=== PATIENT | male | born 1965 | race Caucasian/White ===

== ENCOUNTER 2021-04-02 15:00 | Inpatient (IN) | payer MEDICAID ==
[~2021-04-02] VITALS: Ht 180.3 cm; Wt 173.8 kg
[2021-04-02 21:11] VITALS: BP 165/85
[2021-04-02] MEDS ORDERED: LORazepam 2 mg/ml vial IV PRN (21:35)
[2021-04-02] MEDS ORDERED: HYDROcodone/acetaminophen 5mg/325mg tablet PO PRN (21:35)
[2021-04-02] MEDS ORDERED: morphine 2 MG/ML inj. syringe IV PRN ×2 (21:35)
[2021-04-02] MEDS ORDERED: potassium Cl 20 mEq SR tablet PO PRN ×2 (21:35)
[2021-04-02] MEDS ORDERED: magnesium hydroxide 30ml (MOM) UD suspension PO PRN (21:35)
[2021-04-02] MEDS ORDERED: magnesium 2GM in 50ml NS 50 ML IV PRN (21:35)
[2021-04-02] MEDS ORDERED: potassium Cl 40MEQ/1/2NS 520ml 520 ML IV PRN ×2 (21:35)
[2021-04-02] MEDS ORDERED: acetaminophen 325mg tablet PO PRN ×2 (21:35)
[2021-04-02] MEDS ORDERED: magnesium 4gm in 100ml NS 100 ML IV PRN (21:35)
[2021-04-02] MEDS ORDERED: mag hydrox/Alum hydrox/simeth 30ml oral suspension PO PRN (21:35)
[2021-04-02] MEDS ORDERED: magnesium Cl slow-release 64mg tablet PO PRN (21:35)
[2021-04-02] MEDS ORDERED: heparin 10,000 units/1 ML INJ IV ONE (21:35)
[2021-04-02] MEDS ORDERED: ondansetron/PF 4mg/2ml inj IV PRN (21:35)
[2021-04-02] MEDS ORDERED: dextrose ORAL solution 15 GM/59 ML bottle PO PRN ×2 (22:20)
[2021-04-02] MEDS ORDERED: glucagon, human recombinant 1mg kit SUBCUT PRN (22:20)
[2021-04-02] MEDS ORDERED: MESSAGE TO PHARMACY PO ONE (22:20)
[2021-04-02] MEDS ORDERED: dextrose 50%-water 50ml dispensing syringe IV PRN ×2 (22:20)
--- NOTE | 2021-04-02 22:22 | NUR ---
hydro plant technician was unable to obtain blood sample after 2 puncture. tried as well but no vain can be seen or palpated, IV fluid will be started as order and will try later to obtain blood sample
[2021-04-02] MEDS: normal saline 1000ml 1,000 ML IV SCH (22:46)
[2021-04-02] MEDS: heparin 25,000 UNIT/250ml bag 250 ML IV SCH (23:27)
[2021-04-03] VITALS (10 sets, daily range): BP systolic 136–182; BP diastolic 52–148
[2021-04-03] MEDS: CefTRIAXone 2gm/D5W 50ml BAG 50 ML IV SCH ×2 (00:52→08:22)
[2021-04-03 01:11] LABS: BASOPHILS # (AUTO) 0.1 X10'3 (0-0.2); BASOPHILS % (AUTO) 0.9 % (0-1); EOSINOPHILS # (AUTO) 0.1 X10'3 (0-0.9); EOSINOPHILS % (AUTO) 1.1 % (0-6); HEMATOCRIT 31.9 % (42.0-52.0); HEMOGLOBIN 10.8 g/dl (14.0-17.9); LYMPHOCYTES # (AUTO) 2.6 X10'3 (1.1-4.8); LYMPHOCYTES % (AUTO) 29.8 % (21-51); MEAN CORPUSCULAR HGB CONC 33.8 g/dL (33.0-36.5); MEAN CORPUSCULAR VOLUME 79.8 FL (78-98); MEAN PLATELET VOLUME 8.1 FL (7.4-10.4); MONOCYTES # (AUTO) 0.6 X10'3 (0-0.9); MONOCYTES % (AUTO) 6.9 % (2-12); NEUTROPHILS # (AUTO) 5.3 X10'3 (1.8-7.7); NEUTROPHILS % (AUTO) 61.3 % (42-75); PLATELET COUNT 250 X10'3 (140-440); RED CELL DISTRIBUTION WIDTH 14.8 % (11.5-14.5); WHITE BLOOD COUNT 8.7 X10'3 (4.5-11.0)
[2021-04-03 01:27] LABS: ALANINE AMINOTRANSFERASE 25 U/L (12-78); ALBUMIN 2.4 G/DL (3.4-5.0); ALBUMIN/GLOBULIN RATIO 0.6 (1.1-1.5); ALKALINE PHOSPHATASE 62 IU/L (46-116); ANION GAP 7 (8-16); ASPARTATE AMINO TRANSFERASE 19 U/L (10-37); BILIRUBIN,TOTAL 0.8 MG/DL (0.1-1.0); BLOOD UREA NITROGEN 11 MG/DL (7-18); BUN/CREATININE RATIO 13.4 (5.4-32.0); CHLORIDE 103 MMOL/L (99-107); CHOL/HDL RATIO 2.7 (0.00-4.99); CHOLESTEROL 125 MG/DL (0-200); CREATININE 0.82 MG/DL (0.60-1.10); GLUCOSE 208 MG/DL (70-104); HDL CHOLESTEROL 47 MG/DL (35-60); LDL CHOLESTEROL 58 MG/DL (50-100); POTASSIUM 4.1 MMOL/L (3.5-5.1); SODIUM 141 MMOL/L (135-145); TOTAL CARBON DIOXIDE 30.7 MMOL/L (24-32); TOTAL PROTEIN 6.4 G/DL (6.4-8.2); TRIGLYCERIDES 93 MG/DL (20-135); eGFR > 90 ML/MIN
[2021-04-03 01:31] LABS: HEMOGLOBIN A1C 9.9 % (4.5-6.2)
[2021-04-03 01:33] LABS: MAGNESIUM 0.9 MG/DL (1.5-2.4)
--- NOTE | 2021-04-03 05:11 | NUR ---
patient remains NPO SINCE AFTER MIDNIGHT
--- NOTE | 2021-04-03 05:43 | NUR ---
Unable to obtain PTT level for heparin protocol, another nurse will try to obtain sample
--- NOTE | 2021-04-03 06:30 | NUR ---
Patient in room PCU 3013. I have received report from Maranda HANCOCK and had the opportunity to ask questions and assume patient care.
--- NOTE | 2021-04-03 07:50 | NUR ---
report given to ronnie/SANTI
[2021-04-03] MEDS: K and/or MAG REPLACEMENT MC SCH ×2 (08:00→20:00)
[2021-04-03] MEDS: LORazepam 1 MG tablet PO PRN (08:22)
[2021-04-03] MEDS: azithromycin/NS 500mg/250ml 250 ML IV SCH (08:22)
[2021-04-03] MEDS: nicotine 14mg patch - 24hr TD SCH (08:22)
[2021-04-03] MEDS ORDERED: aspirin 81mg tab.chew PO ONE (09:35)
[2021-04-03] MEDS ORDERED: ACET325T64 PO (09:44)
[2021-04-03] MEDS ORDERED: TEMA15CA5 PO (09:44)
[2021-04-03] MEDS ORDERED: DIPH25CA52 PO (09:44)
[2021-04-03] MEDS ORDERED: nitroGLYCERIN 0.4mg SUBLingual tab SL PRN (09:45)
[2021-04-03] MEDS ORDERED: aminophylline 250mg/10ml inj. IV PRN (09:45)
[2021-04-03] MEDS ORDERED: metoprolol tartrate 1mg/ml inj IV PRN (09:45)
[2021-04-03] MEDS ORDERED: regadenoson 0.4mg/5ml syringe IV PRN (09:45)
[2021-04-03] MEDS ORDERED: ENOX40SY7 SUBCUT (09:47)
[2021-04-03] MEDS ORDERED: HYDR-3965 PO (09:47)
[2021-04-03] MEDS ORDERED: BACL-11 PO (09:49)
[2021-04-03] MEDS ORDERED: ATOR40TA71 PO (09:49)
[2021-04-03] MEDS ORDERED: losartan 25mg tablet PO SCH (09:50)
[2021-04-03] MEDS: heparin 10,000 units/1 ML INJ IV PRN (10:16)
[2021-04-03] MEDS: carVEDilol 3.125mg tablet PO SCH ×2 (10:36→20:32)
[2021-04-03] MEDS: atorvastatin 10mg tablet PO SCH (10:36)
--- NOTE | 2021-04-03 10:37 | NUR ---
Met with patient in regards to substance use and to see if patient wanted resources for inpatient rehab. Patient would like to go to the program at [facility]. I let patients social media job titles know that this is what the patient wanted to do and she will help patient fill out the forms.
[2021-04-03] MEDS: lisinopril 10 MG tablet PO SCH (11:17)
--- NOTE | 2021-04-03 12:05 | NUR ---
Diabetes Consult: Noted A1C 9.9. Provided pt w/ written and verbal DM education w/ RD contact info. Pt states he cannot read or write and would like the written DM ed placed in his chart. Pt also only on Heart Healthy diet, d/w RN about adding [facility] diet if MD agreeable. Will continue to monitor. Addendum: 04/03/21 at [address] Amended: Links added.
--- NOTE | 2021-04-03 13:52 | NUR ---
Pt with Mag level 0.9 and receiving replacement currently. Reta Medina contacted regarding performing Radha in current situation. Reta Medina with confirmation to proceed with Radha.
[2021-04-03] MEDS: nystatin 15 GM powder TP SCH (18:00)
--- NOTE | 2021-04-03 18:37 | NUR ---
Problems reprioritized. Patient report given, questions answered & plan of care reviewed with Nohemi HANCOCK.
[2021-04-03] MEDS: lactobacillus rhamnosus 10,000 MMU CELLS/CAPSULE PO SCH (20:31)
[2021-04-03] MEDS: insulin glargine (Lantus) pen - multi-dose SQ SCH (21:00)
[2021-04-03 23:55] LABS: CLARITY,URINE CLEAR (Clear); COLOR,URINE YELLOW (Yellow); UA COLLECTION TYPE NON-SPECIFIED
[2021-04-03 23:56] LABS: GLUCOSE, URINE NEGATIVE (Neg); KETONES,URINE NEGATIVE (Neg); LEUKOCYTE ESTERASE ,URINE NEGATIVE (Neg); NITRITES, URINE NEGATIVE (Neg); OCCULT BLOOD,URINE NEGATIVE (Neg); PROTEIN,URINE NEGATIVE (Neg); UROBILINOGEN,URINE 0.2 E.U/dL (0.2-1.0)
[2021-04-03] MEDS: heparin 25,000 UNIT/250ml bag 250 ML IV SCH (23:58)
[2021-04-04 00:01] LABS: URINE AMPHETAMINE SCREEN NEGATIVE (Neg); URINE BARBITUATE SCREEN NEGATIVE (Neg); URINE BENZODIAZEPINES SCREEN NEGATIVE (Neg); URINE CANNABINOID SCREEN NEGATIVE (Neg); URINE COCAINE SCREEN NEGATIVE (Neg); URINE METHADONE SCREEN NEGATIVE (Neg); URINE OPIATE SCREEN NEGATIVE (Neg); URINE PHENCYCLIDINE SCREEN NEGATIVE (Neg)
--- NOTE | 2021-04-04 00:48 | NUR ---
Pt refused lab draw for PTT for heparin drip. Put in order for 0530 for a new draw.
--- NOTE | 2021-04-04 00:48 | NUR ---
Patient in room PCU 3013. I have received report from Kate HANCOCK and had the opportunity to ask questions and assume patient care.
[2021-04-04 02:00] VITALS: BP 149/81
[2021-04-04 03:38] LABS: BASOPHILS # (AUTO) 0.1 X10'3 (0-0.2); BASOPHILS % (AUTO) 0.7 % (0-1); EOSINOPHILS # (AUTO) 0.1 X10'3 (0-0.9); EOSINOPHILS % (AUTO) 1.7 % (0-6); HEMATOCRIT 30.9 % (42.0-52.0); HEMOGLOBIN 10.5 g/dl (14.0-17.9); LYMPHOCYTES # (AUTO) 1.7 X10'3 (1.1-4.8); LYMPHOCYTES % (AUTO) 23.2 % (21-51); MEAN CORPUSCULAR VOLUME 79.6 FL (78-98); MEAN PLATELET VOLUME 8.7 FL (7.4-10.4); MONOCYTES # (AUTO) 0.5 X10'3 (0-0.9); MONOCYTES % (AUTO) 6.9 % (2-12); NEUTROPHILS # (AUTO) 4.8 X10'3 (1.8-7.7); NEUTROPHILS % (AUTO) 67.5 % (42-75); PLATELET COUNT 269 X10'3 (140-440); RED BLOOD COUNT 3.88 X10'6 (4.70-6.10); WHITE BLOOD COUNT 7.1 X10'3 (4.5-11.0)
[2021-04-04 04:15] LABS: ALANINE AMINOTRANSFERASE 20 U/L (12-78); ALBUMIN 2.4 G/DL (3.4-5.0); ALBUMIN/GLOBULIN RATIO 0.6 (1.1-1.5); ALKALINE PHOSPHATASE 61 IU/L (46-116); ANION GAP 5 (8-16); ASPARTATE AMINO TRANSFERASE 26 U/L (10-37); BILIRUBIN,TOTAL 0.6 MG/DL (0.1-1.0); BLOOD UREA NITROGEN 9 MG/DL (7-18); BUN/CREATININE RATIO 12.5 (5.4-32.0); CHLORIDE 104 MMOL/L (99-107); CREATININE 0.72 MG/DL (0.60-1.10); GLUCOSE 155 MG/DL (70-104); MAGNESIUM 1.7 MG/DL (1.5-2.4); SODIUM 139 MMOL/L (135-145); TOTAL CARBON DIOXIDE 30.4 MMOL/L (24-32); TOTAL PROTEIN 6.3 G/DL (6.4-8.2); eGFR > 90 ML/MIN
[2021-04-04 04:17] LABS: POTASSIUM 4.7 MMOL/L (3.5-5.1)
[2021-04-04 04:52] LABS: MICROCYTOSIS 1+; PLATELET ESTIMATE NORMAL; TOTAL CELLS COUNTED 100
[2021-04-04] MEDS: heparin 10,000 units/1 ML INJ IV PRN (05:01)
[2021-04-04 06:00] VITALS: BP 113/68
--- NOTE | 2021-04-04 06:37 | NUR ---
Problems reprioritized. Patient report given, questions answered & plan of care reviewed with Yeison HANCOCK.
[2021-04-04] MEDS: K and/or MAG REPLACEMENT MC SCH ×2 (08:00→20:00)
[2021-04-04] MEDS: nystatin 15 GM powder TP SCH (08:00)
[2021-04-04] MEDS: CefTRIAXone 2gm/D5W 50ml BAG 50 ML IV SCH (08:00)
[2021-04-04] MEDS: lactobacillus rhamnosus 10,000 MMU CELLS/CAPSULE PO SCH ×2 (08:00→19:09)
[2021-04-04] MEDS: nicotine 14mg patch - 24hr TD SCH (08:00)
[2021-04-04] MEDS: lisinopril 10 MG tablet PO SCH (08:00)
[2021-04-04] MEDS: atorvastatin 10mg tablet PO SCH (08:00)
[2021-04-04] MEDS: azithromycin/NS 500mg/250ml 250 ML IV SCH (08:00)
[2021-04-04] MEDS: carVEDilol 3.125mg tablet PO SCH ×2 (08:00→19:09)
[2021-04-04] MEDS: spironolactone 25 MG tablet PO SCH (08:30)
[2021-04-04] MEDS: aspirin 81mg tab.chew PO SCH (08:30)
[2021-04-04] MEDS: insulin Lispro (HumaLOG) vial - multi-dose SQ SCH ×2 (09:59→19:03)
[2021-04-04 11:00] VITALS: BP 146/88
[2021-04-04] MEDS: heparin 25,000 UNIT/250ml bag 250 ML IV SCH ×2 (14:09→23:49)
[2021-04-04 15:00] VITALS: BP 143/71
[2021-04-04 18:00] VITALS: BP 136/70
--- NOTE | 2021-04-04 18:44 | NUR ---
Patient in room PCU 3013. I have received report from Yeison HANCOCK and had the opportunity to ask questions and assume patient care.
[2021-04-04] MEDS: HYDROcodone/acetaminophen 10/325mg tab PO PRN (19:09)
--- NOTE | 2021-04-04 21:13 | NUR ---
systems technician arrived on unit to draw DVT PTT. Creative Developer refused to draw Lab after interacting with patient over concerns for safety. Patient has a hx of IV drug use and is a very difficult draw. No other Phlebotomists are currently available. Will consult with Charge Nurse for appropriate plan moving forward
[2021-04-04] MEDS: insulin glargine (Lantus) pen - multi-dose SQ SCH (21:46)
[2021-04-04 22:00] VITALS: BP 142/88
[2021-04-04] MEDS: temazepam 15mg capsule PO PRN (23:45)
[2021-04-05] MEDS: temazepam 15mg capsule PO PRN ×2 (00:38→20:16)
[2021-04-05 02:01] VITALS: BP 127/68
[2021-04-05] MEDS: LORazepam 1 MG tablet PO PRN (02:52)
[2021-04-05] MEDS: normal saline 1000ml 1,000 ML IV SCH (02:52)
[2021-04-05 06:00] VITALS: BP 142/91
--- NOTE | 2021-04-05 06:32 | NUR ---
Problems reprioritized. Patient report given, questions answered & plan of care reviewed with Aleks HNACOCK.
[2021-04-05 07:10] LABS: BASOPHILS # (AUTO) 0.1 X10'3 (0-0.2); BASOPHILS % (AUTO) 0.9 % (0-1); EOSINOPHILS # (AUTO) 0.1 X10'3 (0-0.9); HEMATOCRIT 33.1 % (42.0-52.0); LYMPHOCYTES # (AUTO) 2.1 X10'3 (1.1-4.8); LYMPHOCYTES % (AUTO) 33.5 % (21-51); MEAN CORPUSCULAR HEMOGLOBIN 26.9 PG (27.0-31.0); MEAN CORPUSCULAR HGB CONC 33.3 g/dL (33.0-36.5); MEAN CORPUSCULAR VOLUME 80.7 FL (78-98); MONOCYTES # (AUTO) 0.6 X10'3 (0-0.9); MONOCYTES % (AUTO) 9.3 % (2-12); NEUTROPHILS # (AUTO) 3.4 X10'3 (1.8-7.7); NEUTROPHILS % (AUTO) 54.3 % (42-75); PLATELET COUNT 263 X10'3 (140-440); WHITE BLOOD COUNT 6.2 X10'3 (4.5-11.0)
[2021-04-05 07:28] LABS: ALANINE AMINOTRANSFERASE 43 U/L (12-78); ALBUMIN 2.8 G/DL (3.4-5.0); ALBUMIN/GLOBULIN RATIO 0.7 (1.1-1.5); ALKALINE PHOSPHATASE 59 IU/L (46-116); ANION GAP 6 (8-16); ASPARTATE AMINO TRANSFERASE 48 U/L (10-37); BILIRUBIN,TOTAL 0.8 MG/DL (0.1-1.0); BLOOD UREA NITROGEN 8 MG/DL (7-18); BUN/CREATININE RATIO 10.1 (5.4-32.0); CALCIUM 8.5 MG/DL (8.5-10.1); CHLORIDE 101 MMOL/L (99-107); CREATININE 0.79 MG/DL (0.60-1.10); GLUCOSE 128 MG/DL (70-104); MAGNESIUM 1.6 MG/DL (1.5-2.4); POTASSIUM 4.3 MMOL/L (3.5-5.1); SODIUM 137 MMOL/L (135-145); TOTAL CARBON DIOXIDE 30.1 MMOL/L (24-32); eGFR > 90 ML/MIN
[2021-04-05] MEDS: CefTRIAXone 2gm/D5W 50ml BAG 50 ML IV SCH (07:48)
[2021-04-05] MEDS: nicotine 14mg patch - 24hr TD SCH (07:49)
[2021-04-05] MEDS: aspirin 81mg tab.chew PO SCH (07:49)
[2021-04-05] MEDS: nystatin 15 GM powder TP SCH (07:49)
[2021-04-05] MEDS: lactobacillus rhamnosus 10,000 MMU CELLS/CAPSULE PO SCH ×2 (07:49→20:14)
[2021-04-05] MEDS: atorvastatin 10mg tablet PO SCH (07:49)
[2021-04-05] MEDS: clopidogrel 75mg tablet PO SCH (07:51)
[2021-04-05] MEDS: carVEDilol 3.125mg tablet PO SCH ×2 (07:51→20:14)
[2021-04-05] MEDS: spironolactone 25 MG tablet PO SCH (07:54)
[2021-04-05] MEDS: lisinopril 10 MG tablet PO SCH (07:55)
[2021-04-05] MEDS: K and/or MAG REPLACEMENT MC SCH ×2 (08:00→20:00)
[2021-04-05] MEDS ORDERED: hydrocortisone sod succ/PF 100mg/2ml inj. ONE (09:29)
[2021-04-05] MEDS: azithromycin/NS 500mg/250ml 250 ML IV SCH (09:52)
--- NOTE | 2021-04-05 10:48 | NUR ---
PICC NURSE PAGED: [id number] NEEDS PIV PLACED IN LEFT EXTREMITY PLEASE. UNABLE TO START ONE. THANKS DAISY [phone]
[2021-04-05] MEDS ORDERED: CLOP75TA34 PO (11:41)
[2021-04-05] MEDS ORDERED: phenylephrine 10mg/ml inj. ONE (12:35)
[2021-04-05] MEDS ORDERED: heparin 1,000unit/ml 10ml vial 10 ML ONE (12:36)
[2021-04-05] MEDS ORDERED: LIDOcaine 1% (10mg/ml)w/preservative injection 20ml MDV ONE ×2 (12:36→13:14)
[2021-04-05] MEDS ORDERED: midazolam 1 mg/ML 2ml injection ONE (12:36)
[2021-04-05] MEDS ORDERED: iohexol 350MG/ML 100ml bottle IV ONE (12:36)
[2021-04-05] MEDS ORDERED: iohexol 350 MG/ML 50ML vial IV ONE (13:30)
[2021-04-05] MEDS ORDERED: clopidogrel 300mg tablet ONE (13:37)
[2021-04-05] MEDS ORDERED: normal saline 1000ml 1,000 ML IV SCH (14:30)
[2021-04-05] MEDS ORDERED: proCHLORperazine 10 MG/2 ml inj IV PRN (14:35)
[2021-04-05] MEDS ORDERED: hydrALAZINE 20mg/ml inj. IV PRN (14:35)
[2021-04-05] MEDS ORDERED: OXAZEpam 15mg capsule PO PRN (14:35)
[2021-04-05] MEDS ORDERED: DOPamine 400MG/D5W 250 ML -PCU ONLY IV PRN (14:40)
[2021-04-05 15:00] VITALS: BP 121/61
[2021-04-05] MEDS: HYDROcodone/acetaminophen 10/325mg tab PO PRN ×2 (15:40→22:34)
[2021-04-05 18:00] VITALS: BP 124/54
[2021-04-05] MEDS: insulin Lispro (HumaLOG) vial - multi-dose SQ SCH (20:25)
[2021-04-05 22:00] VITALS: BP 129/69
[2021-04-05] MEDS: insulin glargine (Lantus) pen - multi-dose SQ SCH (23:13)
[2021-04-06 02:00] VITALS: BP 122/56
[2021-04-06 06:00] VITALS: BP 132/68
[2021-04-06 07:06] LABS: BASOPHILS % (AUTO) 0.4 % (0-1); EOSINOPHILS # (AUTO) 0.1 X10'3 (0-0.9); EOSINOPHILS % (AUTO) 2.2 % (0-6); HEMATOCRIT 28.9 % (42.0-52.0); HEMOGLOBIN 9.8 g/dl (14.0-17.9); LYMPHOCYTES # (AUTO) 1.3 X10'3 (1.1-4.8); MEAN CORPUSCULAR HEMOGLOBIN 27.1 PG (27.0-31.0); MEAN CORPUSCULAR HGB CONC 33.8 g/dL (33.0-36.5); MEAN CORPUSCULAR VOLUME 80.1 FL (78-98); MEAN PLATELET VOLUME 7.6 FL (7.4-10.4); MONOCYTES # (AUTO) 0.5 X10'3 (0-0.9); MONOCYTES % (AUTO) 9.3 % (2-12); NEUTROPHILS # (AUTO) 3.4 X10'3 (1.8-7.7); NEUTROPHILS % (AUTO) 64.1 % (42-75); PLATELET COUNT 226 X10'3 (140-440); RED BLOOD COUNT 3.61 X10'6 (4.70-6.10); RED CELL DISTRIBUTION WIDTH 15.1 % (11.5-14.5); WHITE BLOOD COUNT 5.2 X10'3 (4.5-11.0)
--- NOTE | 2021-04-06 07:06 | NUR ---
Problems reprioritized. Patient report given, questions answered & plan of care reviewed with MELIA HANCOCK.
[2021-04-06 07:27] LABS: ALANINE AMINOTRANSFERASE 36 U/L (12-78); ALBUMIN 2.6 G/DL (3.4-5.0); ALBUMIN/GLOBULIN RATIO 0.7 (1.1-1.5); ALKALINE PHOSPHATASE 63 IU/L (46-116); ANION GAP 8 (8-16); ASPARTATE AMINO TRANSFERASE 38 U/L (10-37); BILIRUBIN,TOTAL 0.4 MG/DL (0.1-1.0); BLOOD UREA NITROGEN 11 MG/DL (7-18); BUN/CREATININE RATIO 15.1 (5.4-32.0); CALCIUM 8.4 MG/DL (8.5-10.1); CHLORIDE 105 MMOL/L (99-107); CREATININE 0.73 MG/DL (0.60-1.10); GLUCOSE 160 MG/DL (70-104); MAGNESIUM 1.6 MG/DL (1.5-2.4); POTASSIUM 4.4 MMOL/L (3.5-5.1); SODIUM 140 MMOL/L (135-145); TOTAL CARBON DIOXIDE 26.7 MMOL/L (24-32); TOTAL PROTEIN 6.3 G/DL (6.4-8.2); eGFR > 90 ML/MIN
[2021-04-06] MEDS: nicotine 14mg patch - 24hr TD SCH (08:00)
[2021-04-06] MEDS: K and/or MAG REPLACEMENT MC SCH (08:00)
[2021-04-06] MEDS: spironolactone 25 MG tablet PO SCH (08:45)
[2021-04-06] MEDS: lactobacillus rhamnosus 10,000 MMU CELLS/CAPSULE PO SCH (08:45)
[2021-04-06] MEDS: atorvastatin 10mg tablet PO SCH (08:45)
[2021-04-06] MEDS: nystatin 15 GM powder TP SCH (08:45)
[2021-04-06] MEDS: aspirin 81mg tab.chew PO SCH (08:45)
[2021-04-06] MEDS: lisinopril 10 MG tablet PO SCH (08:46)
[2021-04-06] MEDS: clopidogrel 75mg tablet PO SCH (08:46)
[2021-04-06] MEDS: carVEDilol 3.125mg tablet PO SCH (08:46)
[2021-04-06] MEDS: insulin Lispro (HumaLOG) vial - multi-dose SQ SCH (08:50)
[2021-04-06] MEDS: CefTRIAXone 2gm/D5W 50ml BAG 50 ML IV SCH (08:50)
[2021-04-06] MEDS: azithromycin/NS 500mg/250ml 250 ML IV SCH (08:50)
[2021-04-06 11:00] VITALS: BP 97/50
[2021-04-06] MEDS ORDERED: COR3.125T PO (11:56)
[2021-04-06] MEDS ORDERED: SPIR25TA PO (11:56)
[2021-04-06] MEDS ORDERED: ALBU8.5H17 INH (11:56)
[2021-04-06] MEDS ORDERED: NITR0.4T51 SL (11:56)
[2021-04-06] MEDS ORDERED: LISI10TA27 PO (11:56)
[2021-04-06] MEDS ORDERED: ASPI81TA53 PO (11:56)
[2021-04-06] MEDS ORDERED: CEFD300C3 PO (11:56)
[2021-04-06] MEDS ORDERED: LACT1CAP26 PO (11:56)
[2021-04-06] MEDS ORDERED: CLOP75TA4 PO (11:56)
[2021-04-06] MEDS ORDERED: AMA1T PO (12:02)
[2021-04-06] MEDS ORDERED: METF-1203 PO (12:02)
[2021-04-06] MEDS ORDERED: LINA5TAB4 PO (12:02)
== END 2021-04-06 16:15 | disposition home or self-care (01) | DRG 30 ==
LOC: UNDOADMIN 15:00 → PCU 3S 15:00
PROVIDERS: ADMIT Family Medicine; ATTEND Family Medicine
PROC: 4A02XM4 Measurement of Cardiac Total Activity, External Approach (ICD-10-PCS; 2021-04-03)
PROC: 3E073KZ Introduction of Other Diagnostic Substance into Coronary Artery, Percutaneous Approach (ICD-10-PCS; 2021-04-03)
PROC: 037M3DZ Dilation of Right External Carotid Artery with Intraluminal Device, Percutaneous Approach (ICD-10-PCS; principal; 2021-04-05)
PROC: B3191ZZ Fluoroscopy of Right External Carotid Artery using Low Osmolar Contrast (ICD-10-PCS; 2021-04-05)
PROC: B3131ZZ Fluoroscopy of Right Common Carotid Artery using Low Osmolar Contrast (ICD-10-PCS; 2021-04-05)
DX: I63.9 Cerebral infarction, unspecified (principal); I50.23 Acute on chronic systolic (congestive) heart failure; I42.7 Cardiomyopathy due to drug and external agent; J18.9 Pneumonia, unspecified organism; Z68.43 Body mass index [BMI] 50.0-59.9, adult; I11.0 Hypertensive heart disease with heart failure; E11.9 Type 2 diabetes mellitus without complications; E78.5 Hyperlipidemia, unspecified; E66.01 Morbid (severe) obesity due to excess calories; G47.33 Obstructive sleep apnea (adult) (pediatric); E83.42 Hypomagnesemia; I08.1 Rheumatic disorders of both mitral and tricuspid valves; F17.210 Nicotine dependence, cigarettes, uncomplicated; F20.9 Schizophrenia, unspecified; F31.9 Bipolar disorder, unspecified; F15.20 Other stimulant dependence, uncomplicated; I65.21 Occlusion and stenosis of right carotid artery; J45.909 Unspecified asthma, uncomplicated; F10.20 Alcohol dependence, uncomplicated; T38.3X6A Underdosing of insulin and oral hypoglycemic [antidiabetic] drugs, initial encounter; Y92.89 Other specified places as the place of occurrence of the external cause; Z59.02 Unsheltered homelessness; Z91.19 Patient's noncompliance with other medical treatment and regimen; Z71.3 Dietary counseling and surveillance; Z88.0 Allergy status to penicillin; Z90.49 Acquired absence of other specified parts of digestive tract; Z71.6 Tobacco abuse counseling; Z71.51 Drug abuse counseling and surveillance of drug abuser
CPT/HCPCS: 36415; 37215; 71045; 76937; 78452; 80053; 80061; 80305; 81003; 82948; 83036; 83605; 83735; 83880; 85007; 85025; 85610; 85730; 87040; 87081; 93005; 93017; A4620; A9500; C1725; C1760; C1769; C1876; C1884; C1887; C1894; G0378; J0456; J0696; J1644; J1720; J1815; J2001; J2250; J2370; J2785; J3475; J7030; Q9967